=== PATIENT | male | born 1985 | race Caucasian/White ===

== ENCOUNTER 2023-07-04 17:46 | Emergency (ER) | payer OTHER ==
[~2023-07-04] VITALS: Ht 177.8 cm; Wt 77.1 kg
[2023-07-04 17:59] VITALS: BP 143/98; TEMP 98.6; O2SAT 100
== END 2023-07-04 20:53 | disposition left against medical advice (07) ==
LOC: ER 18:02
DX: F41.9 Anxiety disorder, unspecified (principal); R42 Dizziness and giddiness